=== PATIENT | female | born 1945 | race Caucasian/White ===

== ENCOUNTER → 2017-03-02 | Outpatient (CLI) | payer MEDICARE, OTHER ==
[~2017-03-02] MED LIST: ACETAMINOPHEN PO; LIPITOR40 MG PO; LORTAB 7.5-5001 TAB PO; NO MEDICATIONS; PHENERGAN25 MG PO; TOPROL XL PO
--- NOTE | ~2017-03-02 | MY11 ---
[facility]. [facility] A Service of [facility] RADIOLOGY TEXT RESULTS PATIENT: JODY MILLER LOCATION: [facility] : 43 UNIT #: [id number] AGE: [address]: Yane Callejas MD SEX: F ORDER DR: [id number] [address] [address] [id number] MR#: [id number] Acc #: [id number] NAME: JODY MILLER : 1945 SEX: F STUDY DATE/TIME: 03/02/2017 11:43 UNIT: [facility] ROOM: STUDY DESCRIPTION: MY Mammogram Screening Dig Terry Attending Physician: Yane Callejas M.D. Referring Physician: Yane Callejas M.D. Ordering Physician: Yane Callejas M.D. Primary Care Physician: Yane Callejas M.D. MEDICAL IMAGING REPORT This report is preliminary unless electronic signature is present. EXAM Mild digital screening mammogram with CAD. Date: 03/02/2017. HISTORY 71-year-old female with history of benign right breast biopsy in 2010. Family history of breast cancer in 2 sisters at the ages of 53 and 55 respectively. No personal history of breast cancer or current complaints. COMPARISON Bilateral screening mammogram 09/16/2015, 06/18/2011. FINDINGS CC and MLO views were obtained of each breast utilizing digital technique and reviewed with an FDA-approved CAD device. A biopsy clip is seen in the posterior right breast superior hemisphere on the MLO view, unchanged. It is not included in imaging field of view on the CC view today. Heterogeneously dense fibroglandular tissue is present bilaterally, with a somewhat fibronodular pattern. Asymmetrically dense fibroglandular tissue in the upper outer right breast central third is stable. No new or developing nodule, architectural distortion or suspicious clustered microcalcification is evident. No abnormal skin thickening or nipple retraction is identified. IMPRESSION 1. Routine bilateral screening mammogram is recommended in 1 year. Patients over the age of 40 are entered into a reminder system with target STS. [facility] A Service of [facility] RADIOLOGY TEXT RESULTS PATIENT: JODY MILLER LOCATION: [facility] : 43 UNIT #: [id number] AGE: [address]: Yane Callejas MD SEX: F ORDER DR: due date for the next mammogram. A result letter will be sent to the patient. BIRADS: 2 Benign findings. Dictated by... Annamarie Escobar M.D. THIS IS AN ELECTRONICALLY VERIFIED REPORT Annamarie Escoabr M.D. at 03/03/2017 9:00 AM EMERITA/caty TD: 03/02/2017 14:46 JOB #: [id number] MEDICAL IMAGING REPORT Page 1 of 1
== END | disposition home or self-care (01) ==
LOC: SMAM 11:04
DX: Z12.31 Encounter for screening mammogram for malignant neoplasm of breast (principal); Z80.3 Family history of malignant neoplasm of breast; Z91.89 Other specified personal risk factors, not elsewhere classified
CPT/HCPCS: G0202